=== PATIENT | male | born 1995 | race Caucasian/White ===

== ENCOUNTER 2016-05-20 19:00 | Emergency (ER) | payer OTHER ==
[2016-05-20 19:35] VITALS: BP 140/60; PULSE 97; RESP 14; TEMP 98.8; O2SAT 95
--- NOTE | 2016-05-20 20:14 | DX ---
Left ankle - 3 views Indication: Trauma. Technique: AP, mortise, and lateral views. Comparison: None Findings: The bones are anatomically aligned. Ankle mortise is well preserved. No acute fracture. Mod erate lateral soft tissue swelling. A benign smooth ossicle projects along the inferior aspect of the medial malleolus. A corticated ossicle projecting over the posterior talus may represent an accesso ry ossicle versus sequela of remote injury. A benign rounded 3 mm ossicle is present along the dorsal aspect of the anterior process of the talus. Impression: Lateral ankle sprain. No acute fracture.
--- NOTE | 2016-05-20 20:20 | UCPHY ---
H & P Time Seen by Provider: 05/20/16 20:03 Patient Type: New HPI/ROS: This patient complains of a left ankle injury. This occurred while he is [place] in today. He explains that he jumped from 1 rock to another and his foot jammed into a crevice causing forced hyper dorsiflexion and mild eversion. Since that time said lateral ankle swelling and pain 4/10 intensity. The injury occurred at 10 till 3:00 p.m. today. He is having difficulty bearing full weight due to increased pain with weight-bearing. No other exacerbating or alleviating factors. He has not taken any medication for the pain ROS: No feeling of instability. No other injuries from the incident. No numbness or tingling. 5 point ROS is otherwise negative. Past Medical/Surgical History: Previous left ankle injury without evaluation by physician in previous years Smoking Status: Never smoked Physical Exam: Physical Exam Vital signs are normal. General: No acute distress HEENT: Atraumatic. Lungs: No respiratory distress. Cardiac: Brisk capillary refill is intact throughout. Pulses are 2+ and symmetric in the affected extremity. Skin: No rash or pallor. Extremities: Atraumatic normal except for left ankle Left ankle: Patient has mild to moderate left lateral ankle swelling and tenderness. No significant instability on anterior drawer. No medial tenderness. No significant dorsal foot swelling or tenderness and no Achilles tenderness. Neuro: Alert and oriented x3 with no sensorimotor deficits. Initial differential diagnosis: Ankle sprain versus fracture versus hematoma Constitutional: Initial Vital Signs Temperature (C) 37.1 C 05/20/16 19:28 Heart Rate 97 05/20/16 19:28 Respiratory Rate 14 05/20/16 19:28 Blood Pressure 140/60 H 05/20/16 19:28 O2 Sat (%) 95 05/20/16 19:28 O2 Delivery Mode Room Air Allergies/Adverse Reactions: amoxicillin Allergy (Verified 05/20/16 19:27) Home Medications: Medication Instructions Recorded NK [No Known Home Meds] 05/20/16 MDM/Departure - MDM Diagnostics: Ankle x-ray: Old well corticated calcification medially. Mild lateral swelling. I discussed this film with Dr. Woody-radiologist given calcification over dorsal anterior talus. He thinks this is degenerative rather than acute fracture. I appreciate no other abnormalities ED Course/Re-evaluation: Patient placed in a stirrup splint. I counseled him regarding ankle rehab exercises and ankle sprain - Depart Disposition: Home, Routine, Self-Care Clinical Impression: Ankle sprain Qualifiers: Encounter type: initial encounter Involved ligament of ankle: unspecified ligament Laterality: left Qualifier Code: (S93.402A) Sprain of unspecified ligament of left ankle, initial encounter Instructions: Ankle Sprain (ED), Crutch Instructions (ED) Additional Instructions: Diagnosis: Ankle sprain Plan: Ibuprofen-400 600 mg per 6 hours as needed for pain and swelling. Ice 20 minutes at a time 3 times a day or more for the next few days. Stirrup splint whenever you're up and about until your symptoms resolve. Tylenol in addition if needed for pain. Use crutches initially until it no longer hurts to bear weight. Then start your ankle rehabilitation exercises to include "the alphabet", gentle ankle stretches in the 4 directions, and then manual resistance strengthening exercises in the 4 directions daily for the next several months. Call the orthopedic M.D. listed below to arrange a followup appointment if you' re not improving with the treatment plan over the next week or so. Stand Alone Forms: Work Excuse Referrals: NONE *PRIMARY CARE P,. [Primary Care Provider] - As per Instructions Jayy Durant MD [Medical Doctor] - As per Instructions - PQRS PQRS Measurement: NA
[2016-05-20] MEDS ORDERED: HYDROCOD/APAP 5/325 PREPACK#6 BTL TAKEHOME ONE (20:53)
== END 2016-05-20 21:06 | disposition home or self-care (01) ==
LOC: CED 19:00
DX: S93.402A Sprain of unspecified ligament of left ankle, initial encounter (principal); W23.1XXA Caught, crushed, jammed, or pinched between stationary objects, initial encounter
CPT/HCPCS: 29515-PO; 73610-PO; 99203-PO; G0463-PO; L4350